=== PATIENT | female | born 1965 | race African-American/Black ===

== ENCOUNTER 2024-05-16 13:47 | Emergency (ER) | payer OTHER ==
[~2024-05-16] VITALS: Ht 157.5 cm; Wt 50.0 kg
[2024-05-16 13:56] VITALS: O2SAT 98
[2024-05-16] MEDS: TETANUS, DIPHTHERIA, PERTUSSIS VAC/PF 0.5ML (>10YR OLD) IM ONE (15:54)
[2024-05-16] MEDS: HYDROCODONE/ACETAMINOPHEN 5/325MG TABLET PO ONE (15:55)
[2024-05-16] MEDS: LIDOCAINE HCL/EPINEPHRINE 1%-EPI 1:100,000 20ML VIAL INFIL ONE (15:55)
[2024-05-16] MEDS: BACITRACIN ZINC OINT UDPKT TOP ONE (15:55)
[2024-05-16] MEDS ORDERED: CEPH500C2 MT (16:24)
[2024-05-16 17:18] VITALS: BP 151/89; PULSE 84; RESP 18; TEMP 37.05852; O2SAT 98
== END 2024-05-16 17:25 | disposition home or self-care (01) ==
LOC: ER 13:56
DX: S71.112A Laceration without foreign body, left thigh, initial encounter (principal); J44.9 Chronic obstructive pulmonary disease, unspecified; I10 Essential (primary) hypertension; F10.20 Alcohol dependence, uncomplicated; W18.39XA Other fall on same level, initial encounter; Y93.89 Activity, other specified; Y92.89 Other specified places as the place of occurrence of the external cause; Y99.8 Other external cause status
CPT/HCPCS: 12006; 99283; 90715; 90471; J3490